=== PATIENT | male | born 2000 | race Caucasian/White ===

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

== ENCOUNTER 2019-08-16 11:33 | Emergency (ER) | payer MEDICAID ==
[2019-08-16 12:24] VITALS: BP 123/65; PULSE 61
--- NOTE | 2019-08-16 12:45 | EDM.PDOC ---
ED HPI GENERAL MEDICAL PROBLEM - General Chief Complaint: Upper Extremity Injury/Pain Stated Complaint: RIGHT WRIST PAIN Time Seen by Provider: 08/16/19 12:39 Source of Information: Reports: Patient History Limitations: Reports: No Limitations - History of Present Illness INITIAL COMMENTS - FREE TEXT/NARRATIVE: 19 yo right handed male present to ER for evaluation of right wrist pain which started abruptly upon awakening this am with swelling and deep ache over the ulnar side of wrist. Patient denies injury or fall. He denies alcohol use that night which may have clouded his memory. Patient has history of tendonitis in the past but previously involving left wrist and radial or thumb. Patient denies numbness, tingling or weakness the pain starts in wrist and radiates to palm. No pain into forearm or elbow. Patient does a lot of carrying for work up under arm denies frequent grasping, pushing or pulling. right wrist Pain Score (Numeric/FACES): 9 - Related Data Allergies Allergy/AdvReac Type Severity Reaction Status Date / Time No Known Allergies Allergy Verified 08/16/19 12:22 Home Meds: Home Meds NK [No Known Home Meds] 03/16/14 [History] Past Medical History - Past Health History Medical/Surgical History: Denies Medical/Surgical History Social & Family History - Tobacco Use Smoking Status *Q: Current Every Day Smoker Years of Tobacco use: 5 Packs/Tins Daily: 0.5 - Caffeine Use Caffeine Use: Reports: Coffee - Recreational Drug Use Recreational Drug Use: No Review of Systems - Review of Systems Review Of Systems: ROS reveals no pertinent complaints other than HPI. ED EXAM, GENERAL - Physical Exam Exam: See Below Exam Limited By: No Limitations General Appearance: Alert, WD/WN, No Apparent Distress (an cell phone between questions) Eye Exam: Bilateral Eye: EOMI, PERRL Ears: Normal External Exam, Hearing Grossly Normal Nose: Normal Inspection Throat/Mouth: Normal Voice, No Airway Compromise Head: Atraumatic, Normocephalic Neck: Normal Inspection, Supple, Full Range of Motion Respiratory/Chest: No Respiratory Distress Cardiovascular: Normal Peripheral Pulses, Regular Rate, Rhythm Peripheral Pulses: 4+: Radial (L), Radial (R) Extremities: Non-Tender, No Pedal Edema, Normal Capillary Refill, Joint Swelling (right wrist swelling noted, thenar eminince and muscle of right hand larger than left (no pain over radial aspect of wrist or thumb. Focal pain ulnar wrist. No pain forearm or elbow, flexion extension of elbow, suponation or pronation of forearm), Limited Range of Motion (right wrist with hyperextension and flexion ) Neurological: Alert, Oriented, CN II-XII Intact, Normal Cognition, Normal Gait, Normal Reflexes, No Motor/Sensory Deficits Psychiatric: Normal Affect, Normal Mood Skin Exam: Warm, Dry, Intact, Normal Color, No Rash ED TRAUMA EXTREMITY PROCEDURES - Splinting Right Upper Extremity Splint Site: wrist wrist Pre-Procedure NV Status: Normal Post-Procedure NV Status: Normal Splint Material: Fiberglass Splint Design: Gutter Applied & Form Fitted By: Provider Provider Post-Splint Application NV Check: NV Status Normal Course - Vital Signs Last Recorded V/S: Last Vital Signs Temp 36.4 C 08/16/19 12:23 Pulse 61 08/16/19 12:23 Resp 12 08/16/19 12:23 BP 123/65 08/16/19 12:23 Pulse Ox 97 08/16/19 12:23 - Radiology Interpretation Free Text/Narrative:: Right Wrist XR: widening of the radial ulnar space noted. Old scaphoid fracture (avulsion/old injury) no pain over radial aspect of wrist at this time. Radiology report noted: FINDINGS: Small benign areas of sclerosis in the right navicular bone and the distal right radius. No fracture or dislocation in the right wrist. Small benign lucency in the right fourth Metacarpal head. Right wrist otherwise unremarkable. Departure - Departure Time of Disposition: 13:43 Disposition: Home, Self-Care 01 Clinical Impression: Strain of right wrist - Discharge Information Instructions: Wrist Sprain, Adult, Cryotherapy, Wrist Splint, Adult Referrals: PCP,None [Primary Care Provider] - Forms: ED Department Discharge Additional Instructions: 1. Note for work written 2. Keep splint clean and dry in placed until follow-up with PCP or Orthopedic provider in the next 1-2 weeks. 3. Tylenol 650-1000 mg every 6gours as needed for mild pain and/or 4. Ibuprofen 600-800mg every 6-8hours with food for pain and swelling 5. Elevated as much as possible. Ice 15-20 minutes 23-4 times per day.
--- NOTE | 2019-08-16 13:27 | CRLCR ---
Indication Pain without injury. Pain is more on the ulnar side. TECHNIQUE: Three views right wrist. FINDINGS: Small benign areas of sclerosis in the right navicular bone and the distal right radius. No fracture or dislocation in the right wrist. Small benign lucency in the right 4th metacarpal head. Right wrist otherwise unremarkable. Dictated by Jose Ojeda MD @ Aug 16 2019 1:24PM Signed by Dr. Jose Ojeda @ Aug 16 2019 1:27PM
== END 2019-08-16 14:04 | disposition home or self-care (01) ==
LOC: JP.ED 11:33
DX: S66.911A Strain of unspecified muscle, fascia and tendon at wrist and hand level, right hand, initial encounter (principal); F17.210 Nicotine dependence, cigarettes, uncomplicated; X50.0XXA Overexertion from strenuous movement or load, initial encounter
CPT/HCPCS: 29125; 73110-RT; 99283-25